=== PATIENT | male | born 1980 | race Caucasian/White ===

== ENCOUNTER 2018-08-07 16:36 | Emergency (ER) | payer OTHER, SELFPAY ==
[2018-08-07 16:36] VITALS: BP 134/75; PULSE 89; RESP 16; TEMP 36.8; O2SAT 99; BMI 34.2
--- NOTE | 2018-08-07 17:07 | CT_ITS ---
STUDY: CT ABDOMEN AND PELVIS WITH CONTRAST REASON FOR EXAM: Male, 38 years old. Pain RADIATION DOSAGE (If Supplied By Facility): DLP = ( 1295.03 ) mGycm TECHNIQUE: Transaxial images were obtained from the dome of the diaphragm to the symphysis pubis without oral contrast. 100mL ml of Isovue 300 contrast was administered. Sagittal and coronal images were reconstructed. Individualized dose optimization techniques were used for this CT. COMPARISON: None. FINDINGS: Bibasilar atelectasis is present. The visualized portions of the heart and pericardium are within normal limits. There are no calcified gallstones present. The liver is within normal limits. There are no suspicious hepatic lesions. The spleen is normal in size. The pancreas is within normal limits. The adrenal glands are within normal limits. There are no obstructing renal stones. There is no hydronephrosis. There are no focal renal lesions. Normal visualized stomach. Colonic diverticulosis is present. There is thickening of the mid to distal descending colonic wall with adjacent inflammatory changes. A focally inflamed diverticulum is present. The aorta is normal in caliber. There is no abdominal or pelvic free air, free fluid, fluid collection or lymphadenopathy. There are no destructive osseous lesions. CT/Abdomen/Pelvis W IV Cont ONLY IMPRESSION: Acute diverticulitis of the mid to distal descending colon.. Electronically Signed: Kunal Baires, at 18:36 EDT Tel , Service support ,
--- NOTE | 2018-08-07 17:10 | ED.DCSUM_ITS ---
- ER Visit Summary Date of Service: 08/07/18 Chief Complaint: Abdominal pain History of Present Illness: The patient is a 38 M presents with left upper and mid abdominal pain as well as some epigastric pain started quite rapidly yesterday radiated to his back but now he has no back pain. He has no fever ch ills no chest pain shortness of breath. He has no lower abdominal pain he has no testicular pain. He has no diarrhea or constipation. He has nausea but no vomiting. Physical Examination: He appears in some distress Moist mucous membranes, no obvious facial deformity No C-spine tenderness supple neck. Regular rate and rhythm without any obvious murmurs Clear lungs bilaterally speaking in full sentences without any obvious respiratory distress Abdomen soft with left mid and upper abdominal pain, there is no CVA pain. There is no guarding or rebound. Moves all extremities without any difficulty or pain. Skin does not show any obvious rashes or lesions, no trauma. Alert oriented ?3 with no gross focal deficit Emergency Department Course and Treatment: She was found to have acute diverticulitis, there is no diverticular abscess blood work is unremarkable I believe the patient is stable for discharge with p.o. Cipro and Flagyl. If he has fever chills or he gets worse needs to return. Discharge stable condition Impression: [Diverticulitis] This note was generated with [employer] dictation software. It may contain incorrect words, spelling, and punctuation that were not noted in review of the chart prior to signing ED Disposition - Plan for ED Patient: Disposition: Home or Assisted Living Instructions: ED Diverticulitis Prescriptions: Hydrocodone Bitart/Apap 5-325 [Brodnax 5MG-325MG] 1 tab PO Q4H PRN PRN 2 Days #12 tab PRN Reason: Pain Referrals: Marisabel Perez, CHAO-C [Primary Care Provider] - 3-5 Days
[2018-08-07] MEDS: Ketorolac 30 MG/ML Syringe 15 MG IV (17:19)
[2018-08-07] MEDS: 0.9% Normal Saline 1,000 ML 1000 ML IV (17:20)
[2018-08-07] MEDS: Ondansetron 4 MG/2 ML Vial IV (17:20)
[2018-08-07] MEDS: Morphine 4 MG/ML Syringe IV (17:20)
[2018-08-07 17:31] LABS: Absolute Lymphocyte Count 1.52 X10^3/ul (0.83-4.51); Absolute Neutrophil Count 8.5 X10^3/uL (2.0-7.7); Basophil# 0.02 X10^3/uL; Basophil% 0.2 % (0-1); Eosinophil# 0.08 X10^3/uL; Eosinophils% 0.7 % (0-5); Hematocrit 44.9 % (40-54); Hemoglobin 15.5 g/dl (13.0-16.5); Lymphocyte # 1.52 X10^3/ul (4.0); Lymphocyte % 13.3 % (19-41); Mean Corp Hgb Conc 34.5 g/gl (32-36); Mean Corpuscular Hgb 28.9 pg (27.0-32.0); Mean Corpuscular Volume 83.8 fL (80-94); Monocyte# 1.25 X10^3/uL; Neutrophil % 74.6 % (47-70); Platelet Count 181 K/mm3 (150-450); RBC Distribution Width CV 13.7 % (11.6-14.6); Red Blood Count 5.36 M/mm3 (4.6-6.2); White Blood Count 11.4 K/mm3 (4.4-11.0)
[2018-08-07 17:43] LABS: POSITIVE COUNT NO; POSITIVE DIFFERENTIAL NO; POSITIVE MORPHOLOGY NO
[2018-08-07 18:07] LABS: ALB/GLOB Ratio 1.1 RATIO (0.9-2.4); AST(SGOT) 12 U/L (15-37); Alanine Aminotransfer ALT/SGPT 35 U/L (16-61); Albumin, Serum 4.1 g/dL (3.2-5.0); Alkaline Phosphatase 100 U/L (45-117); Anion Gap 8 (5-15); BUN 17 mg/dL (7-18); BUN/Creat Ratio 15.5 RATIO (10-20); Chloride 105 mmol/L (98-107); EST Glomerular Filtration Rate 80 mL/min (>60); Est Glom Filt Rate - Afr Amer 97 mL/min (>60); Estimated Creatinine Clearance 89.82 ml/min; Globulin 3.9 g/dL (2.2-4.2); Glucose 100 mg/dL (74-106); Lipase 151 U/L (73-393); Potassium 3.9 mmol/L (3.5-5.1); Sodium Level 140 mmol/L (136-145)
--- NOTE | 2018-08-07 20:22 | DCINST.ED_ITS ---
ED Disposition - Plan for ED Patient: Disposition: Home or Assisted Living Instructions: ED Diverticulitis Prescriptions: Hydrocodone Bitart/Apap 5-325 [[place] 5MG-325MG] 1 tab PO Q4H PRN PRN 2 Days #12 tab PRN Reason: Pain Ciprofloxacin [Cipro] 500 mg PO BID #20 tab Metronidazole [Flagyl] 500 mg PO Q6H #40 tab Referrals: Marisabel Perez TEACHER SELECTION SPECIALIST-C [Primary Care Provider] - 3-5 Days
[2018-08-07] MEDS: metroNIDAZOLE 500 MG Tablet PO (21:10)
[2018-08-07] MEDS: Ciprofloxacin 500 MG Tablet PO (21:10)
[2018-08-07 21:14] VITALS: PULSE 68; RESP 16; O2SAT 98
== END 2018-08-07 21:14 | disposition home or self-care (01) ==
PROVIDERS: Emergency Provider Emergency Medicine; Family Provider Nurse Practitioner; PCP Nurse Practitioner
DX: K57.92 Diverticulitis of intestine, part unspecified, without perforation or abscess without bleeding (principal); I10 Essential (primary) hypertension; Z72.0 Tobacco use; Z79.899 Other long term (current) drug therapy
CPT/HCPCS: 74177; 80053; 83690; 84484; 85025; 96361; 96374; 96375; 99284; J7030; Q9967; J2405

== ENCOUNTER 2020-01-22 08:20 | Emergency (ER) | payer OTHER, SELFPAY ==
[2020-01-22 08:20] VITALS: BP 145/93; PULSE 83; RESP 18; TEMP 36.6; O2SAT 100; BMI 37.0
--- NOTE | 2020-01-22 08:41 | RAD_ITS ---
STUDY: X-RAY CHEST REASON FOR EXAM: Male, 39 years old. chest pain TECHNIQUE: PA and lateral views of the chest. COMPARISON: None. FINDINGS: The lungs are clear and expanded. There is no demonstrated pleural abnormality. Normal size heart. Normal mediastinum and toy. Normal visualized pulmonary arteries. Normal visualized aortic arch and descending thoracic aorta. Normal visualized thoracic spine. Normal visualized ribs, clavicles, and shoulders. There is no demonstrated abnormality of the visualized soft tissue structures of the upper abdomen. RAD/Chest PA and Lateral IMPRESSION: Normal x-ray examination of the chest. Electronically Signed: Carlos Alberto Alfonso MD at 9:17 EDT Tel , Service support ,
--- NOTE | 2020-01-22 08:41 | ED.VIS.GEN ---
History of Present Illness Chief Complaint: Chest Pain Narrative: Patient is a 39-year-old male who presents with chest pain. This been going on for about 3 to 4 days. He complains of sharp substernal chest pain which is worse with palpation or deep inspiration. It is also worse if he lays on his stomach or on his side and is relieved by laying flat on his back. He also complains of nausea. He complains of feeling short of breath. No fever. No cough. No vomiting or diarrhea. No sore throat congestion rhinorrhea or headache. He does frequently travel for work and often will be in the vehicle for 4 hours at a time. He states a few weeks ago he had severe left leg pain which lasted about a week and went from his thigh down to his calf. This resolved little over a week ago and he currently has no leg pain. No edema. No history of DVT or pulmonary embolism. Past Medical History - Allergies and Home Meds Allergies/Adverse Reactions: Allergies No Known Allergies Allergy (Verified 01/22/20 08:23) Primary Care Physician: Marisabel Perez OFFSET PLATE PREPARATION SUPERVISOR, OFFSET PLATE PREPARATION SUPERVISOR-C [Primary Care Provider] - Past Medical History: - - Hypertension Smoking Status: Former smoker Review of Systems All systems negative except as indicated General: Denies: Fever Eyes: Denies: Visual changes - bilaterally ENT: Denies: Bilateral ear pain Cardiovascular: Reports: Chest pain Respiratory: Reports: Dyspnea. Denies: Cough, Sputum Gastrointestinal: Reports: Nausea. Denies: Abdominal pain, Vomiting, Diarrhea Musculoskeletal: Reports: Extremity Pain. Denies: Swelling Skin: Denies: Rash Neurological: Denies: Headache Hematologic: Denies: Easy bruising, Easy bleeding Allergy: Denies: Uticaria Physical Exam Vital Signs/Narrative: Vital Signs Temp Pulse Resp BP Pulse Ox 01/22/20 08:20 97.9 F 83 18 145/93 H 100 Inital Vital Signs reviewed: Yes General: Well nourished Head: Normocephalic Eyes: EOMI ENT: Moist mucous membranes Neck: Supple Cardiovascular: Regular rate, Regular rhythm Respiratory: No distress, CTA bilaterally Abdomen: Soft, Nontender, Nondistended Extremities: Nontender, No edema, - - Symmetric palpable radial pulses Skin: Normal color Neurological: Alert Psychological: Normal affect Diagnostic/Tx/Re-eval Impressions Chest X-Ray 01/22/20 08:41 IMPRESSION: Normal x-ray examination of the chest. Electronically Signed: Carlos Alberto Alfonso MD at 9:17 EDT Tel , Service support , 01/22/20 08:41 Chest PA and Lateral [RAD] Stat Laboratory Results 01/22/20 01/22/20 01/22/20 08:20 08:20 08:20 WBC 7.4 RBC 5.17 Hgb 15.3 Hct 45.7 MCV 88.4 MCH 29.6 MCHC 33.5 RDW Std Deviation 42.5 RDW Coeff of Raul 13.2 Plt Count 230 MPV 9.8 Immature Gran % (Auto) 0.500 Neut % (Auto) 63.4 Lymph % (Auto) 26.3 [place] % (Auto) 8.1 Eos % (Auto) 0.9 Baso % (Auto) 0.8 Absolute Neuts (auto) 4.7 Absolute Lymphs (auto) 1.94 Nucleated RBC % 0 PT 13.5 INR 1.1 D-Dimer Quant (PE/DVT) 0.36 Sodium 141 Potassium 3.7 Chloride 108 H Carbon Dioxide 30.0 Anion Gap 3 L BUN 20 H Creatinine 1.12 Estim Creat Clear Calc 87.37 Est GFR (MDRD) Af Amer 95 Est GFR (MDRD) Non-Af 78 BUN/Creatinine Ratio 17.9 Glucose 111 H Calcium 9.2 Troponin I < 0.015 - Medical Decision Making EKG shows normal sinus rhythm at a rate of 76 with no acute ischemic changes. Laboratory studies and chest x-ray unremarkable. Heart score is 1. The description of patient's symptoms is atypical. He has a normal EKG and negative troponin. I do feel he is safe for outpatient follow-up but he does understand to return for new or worsening symptoms and was advised on specific signs and symptoms to monitor for and the patient was discharged. ED Disposition - Plan for ED Patient: Disposition: Home or Assisted Living Diagnosis: Chest pain Instructions: ED Chest Pain NonCardiac Referrals: Marisabel Perez NP, OFF[employer] PLATE PREPARATION SUPERVISOR-C [Primary Care Provider] -
[2020-01-22 08:48] LABS: Absolute Lymphocyte Count 1.94 X10^3/uL (0.83-4.51); Absolute Neutrophil Count 4.7 X10^3/uL (2.0-7.7); Basophil# 0.06 X10^3/uL; Basophil% 0.8 % (0-1); Eosinophil# 0.07 X10^3/uL; Eosinophils% 0.9 % (0-5); Hematocrit 45.7 % (40-54); Hemoglobin 15.3 g/dL (13.0-16.5); Lymphocyte # 1.94 X10^3/ul (4.0); Lymphocyte % 26.3 % (19-41); Mean Corp Hgb Conc 33.5 g/dL (32-36); Mean Corpuscular Hgb 29.6 pg (27.0-32.0); Mean Corpuscular Volume 88.4 fL (80-94); Mean Platelet Vol. 9.8 fl (6.2-12.0); Monocyte% 8.1 % (0-10); NRBC Flagged by Analyzer 0 % (0-5); Neutrophil # 4.67 X10^3/uL (2.7-7.7); Neutrophil % 63.4 % (47-70); Platelet Count 230 K/mm3 (150-450); RBC Distribution Width CV 13.2 % (11.6-14.6); RBC Distribution Width SD 42.5 fl (35.1-43.9); Red Blood Count 5.17 M/mm3 (4.6-6.2); White Blood Count 7.4 K/mm3 (4.4-11.0)
[2020-01-22 09:00] LABS: Anion Gap 3 (5-15); BUN 20 mg/dL (7-18); BUN/Creat Ratio 17.9 RATIO (10-20); Calcium,Total 9.2 mg/dL (8.5-10.1); Chloride 108 mmol/L (98-107); Creatinine, Serum 1.12 mg/dL (0.70-1.30); EST Glomerular Filtration Rate 78 mL/min (>60); Est Glom Filt Rate - Afr Amer 95 mL/min (>60); Estimated Creatinine Clearance 87.37 ml/min; Glucose 111 mg/dL (74-106); International Normalized Ratio 1.1; Potassium 3.7 mmol/L (3.5-5.1); Prothrombin Time (Protime)PT. 13.5 SECONDS (11.7-14.9); Sodium Level 141 mmol/L (136-145)
[2020-01-22 09:02] LABS: D-Dimer Quantitative (DVT/PE) 0.36 FEU/ug/m (0.27-0.49)
[2020-01-22 10:00] VITALS: BP 136/99; PULSE 77; RESP 16; O2SAT 97
--- NOTE | 2020-01-22 10:01 | ED.RN ---
pt has a rash around his neck and on his r shoulder. dr gomez made aware and talked to the pt about this issue
== END 2020-01-22 10:02 | disposition home or self-care (01) ==
PROVIDERS: Emergency Provider Emergency Medicine; PCP Nurse Practitioner
DX: R07.9 Chest pain, unspecified (principal); I10 Essential (primary) hypertension; Z79.899 Other long term (current) drug therapy
CPT/HCPCS: 71046; 80048; 84484; 85025; 85379; 85610; 93005; 99285; A4216

== ENCOUNTER 2021-02-02 09:55 | Emergency (ER) | payer OTHER, SELFPAY ==
[2021-02-02] VITALS (7 sets, daily range): BP systolic 196; BP diastolic 111; PULSE 105–108; RESP 18; TEMP 37.5; O2SAT 93–97; BMI 38.2
--- NOTE | 2021-02-02 10:14 | RAD_ITS ---
STUDY: X-RAY CHEST REASON FOR EXAM: Male, 40 years old. 6 day history of cough and shortness of breath. TECHNIQUE: Single AP portable view of the chest. COMPARISON: Comparison is made with prior study dated 01/22/2020. FINDINGS: Scattered calcified granulomas. There is no demonstrated pleural abnormality. Normal size heart. Normal mediastinum and toy. Normal visualized pulmonary arteries. Normal visualized aortic arch and descending thoracic aorta. Normal visualized thoracic spine. Normal visualized ribs, clavicles, and shoulders. There is no demonstrated abnormality of the visualized soft tissue structures of the upper abdomen. RAD/Chest 1 View (Portable) IMPRESSION: Scattered calcified granulomas. Electronically Signed: Shabbir Sands MD at 11:01 EST , Service support ,
--- NOTE | 2021-02-02 10:18 | EX.ED.DYSGE1 ---
HPI History of Present Illness Chief Complaint: Shortness of Breath Informant: patient Narrative Narrative: 40-year-old male presenting with Covid symptoms. He states his symptoms started approximately one week ago. He had a home Covid test that was positive 6 days ago. He states his family all tested positive at home as well. He has had fever, body aches, generalized fatigue. He denies chest pain or shortness of breath. He has had diarrhea. Denies vomiting. Prior similar symptoms: No Recent Illness/Hospitalization: No PFSH PFSH Medical History (Updated 02/02/21 @ 11:[address] Ida Simms MD) Hypertension Hypertension Home Medications losartan 50 mg PO DAILY 08/07/18 [History Last Taken 01/21/20] Allergy/AdvReac Type Severity Reaction Status Date / Time No Known Allergies Allergy Verified 02/02/21 09:57 Social History Smoking Status: Former smoker ROS ROS ED Constitutional Constitutional ED: Denies fever(s) Eyes Eyes: Denies change in vision ENT ENT ED: Reports rhinorrhea; Denies sore throat Cardiovascular Cardiovascular: Denies chest pain or palpitations Respiratory/Chest Respiratory/Chest: Reports cough; Denies dyspnea Gastrointestinal Gastrointestinal: Reports diarrhea; Denies abdominal pain, nausea or vomiting Genitourinary Genitourinary ED: Denies dysuria Musculoskeletal Musculoskeletal: Reports myalgias Integumentary Denies rash Neurologic Neurologic: Denies headache(s) Psychiatric Psychiatric: Denies suicidal thoughts EXAM Physical Exam Const Vital Signs: 02/02/21 09:57 02/02/21 10:01 02/02/21 10:06 Temperature 99.5 F H 99.5 F H Temperature Source Temporal Temporal Pulse Rate 108 H 108 H Respiratory Rate 18 18 Respiratory Effort Normal Non-Labored Respiratory Depth Normal Respiratory Pattern Normal Blood Pressure 196/111 H 196/111 H Blood Pressure Mean 139 139 Pulse Ox 97 97 Oxygen Delivery Method Room Air Room Air Room Air 02/02/21 10:08 Temperature Temperature Source Pulse Rate Respiratory Rate Respiratory Effort Normal Respiratory Depth Normal Respiratory Pattern Normal Blood Pressure Blood Pressure Mean Pulse Ox Oxygen Delivery Method Room Air Positive well nourished and well developed General Appearance ED: well developed HEENT Reports normocephalic and head/scalp atraumatic Eyes PERRL and EOMs intact bilaterally Neck supple General: Negative for tenderness Chest Wall inspection of chest normal Resp normal respiratory effort and clear to auscultation bilaterally Cardio regular rate and regular rhythm GI non-tender and non-distended Palpation: soft; Negative for guarding or rebound tenderness present no CVA tenderness Extremity normal to inspection Neuro oriented x3 Sensorium / Orientation: alert Psych mental status grossly normal MDM MDM MDM Narrative Medical decision making narrative: Pulse ox is 97% on room air. Ambulatory pulse ox is 93% on room air. CBC shows white count 3.8, platelet 119, chemistries unremarkable. Covid test is positive. Chest x-ray read by myself and radiology shows scattered calcified granulomas. Patient is resting comfortably on reevaluation. He does qualify for monoclonal antibody treatment due to his BMI. This was ordered. Patient will follow up with his primary care physician. He was advised signs and symptoms for which to return to the ED. Lab Data Attestation: I reviewed the patient's lab results. Labs: Laboratory Results - last 24 hr 02/02/21 02/02/21 10:20 10:20 WBC 3.8 L RBC 5.34 Hgb 15.6 Hct 45.8 MCV 85.8 MCH 29.2 MCHC 34.1 RDW Std Deviation 40.6 RDW Coeff of Raul 12.9 Plt Count 119 L MPV 9.5 Immature Gran % (Auto) 0.500 Neut % (Auto) 64.7 Lymph % (Auto) 26.6 [place] % (Auto) 7.9 Eos % (Auto) 0.0 Baso % (Auto) 0.3 Absolute Neuts (auto) 2.5 Absolute Lymphs (auto) 1.01 Nucleated RBC % 0 Sodium 135 L Potassium 3.5 Chloride 100 Carbon Dioxide 29.0 Anion Gap 6 BUN 9 Creatinine 1.17 Estim Creat Clear Calc 82.82 Est GFR (MDRD) Af Amer 89 Est GFR (MDRD) Non-Af 74 BUN/Creatinine Ratio 7.7 L Glucose 103 Calcium 9.0 Radiography Chest X-Ray - ED: 1 View, Read by ED Physician and Read by Radiologist Diagnostic Testing: Clinical Impression(s) from Imaging Studies Chest X-Ray 02/02/21 10:14 IMPRESSION: Scattered calcified granulomas. Electronically Signed: Shabbir Sands MD at 11:01 EST , Service support , Discharge Plan Triage Chief Complaint: Shortness of Breath ED Provider: Ida Simms Dx/Rx/DC Orders Clinical Impression: COVID-19 Instructions: Coronavirus Disease 2019 (COVID-19): Overview Prescriptions: No Action losartan 50 MG tablet 50 mg PO DAILY RF: 0 Other Ambulatory Orders: COVID Outpatient Monoclonal Antibody Referral (Routine) Timeframe: 1 Day Facility: [facility] - Location: [facility] Ordered By: Dr. Ida Simms Primary Care Provider: Marisabel Perez NP Referrals: Marisabel Perez PEDIATRIC ONCOLOGIST, PEDIATRIC ONCOLOGIST-C [Primary Care Provider] - Disposition Disposition: Home, Self Care
[2021-02-02 10:29] LABS: Absolute Lymphocyte Count 1.01 X10^3/uL (0.83-4.51); Absolute Neutrophil Count 2.5 X10^3/uL (2.0-7.7); Basophil# 0.01 X10^3/uL; Basophil% 0.3 % (0-1); Hematocrit 45.8 % (40-54); Hemoglobin 15.6 g/dL (13.0-16.5); Lymphocyte # 1.01 X10^3/ul (0.83-4.51); Lymphocyte % 26.6 % (19-41); Mean Corp Hgb Conc 34.1 g/dL (32-36); Mean Corpuscular Hgb 29.2 pg (27.0-32.0); Mean Corpuscular Volume 85.8 fL (80-94); Mean Platelet Vol. 9.5 fl (6.2-12.0); Monocyte% 7.9 % (0-10); NRBC Flagged by Analyzer 0 % (0-5); Neutrophil # 2.45 X10^3/uL (2.7-7.7); Neutrophil % 64.7 % (47-70); Platelet Count 119 K/mm3 (150-450); RBC Distribution Width CV 12.9 % (11.6-14.6); RBC Distribution Width SD 40.6 fl (35.1-43.9); Red Blood Count 5.34 M/mm3 (4.6-6.2); White Blood Count 3.8 K/mm3 (4.4-11.0)
[2021-02-02] MEDS: 0.9% Normal Saline 1,000 ML 1000 ML IV (10:40)
[2021-02-02 10:46] LABS: Anion Gap 6 (5-15); BUN 9 mg/dL (7-18); BUN/Creat Ratio 7.7 RATIO (10-20); Chloride 100 mmol/L (98-107); Creatinine, Serum 1.17 mg/dL (0.70-1.30); EST Glomerular Filtration Rate 74 mL/min (>60); Est Glom Filt Rate - Afr Amer 89 mL/min (>60); Estimated Creatinine Clearance 82.82 ml/min; Glucose 103 mg/dL (74-106); Potassium 3.5 mmol/L (3.5-5.1); Sodium Level 135 mmol/L (136-145)
== END 2021-02-02 12:05 | disposition home or self-care (01) ==
PROVIDERS: Emergency Provider Emergency Medicine; PCP Nurse Practitioner
DX: U07.1 COVID-19 (principal); I10 Essential (primary) hypertension; Z79.899 Other long term (current) drug therapy; Z87.891 Personal history of nicotine dependence
CPT/HCPCS: 71045; 80048; 85025; 87426; 96360; 99284; J7030; A4216

== ENCOUNTER 2021-02-02 15:42 | Outpatient (CLI) | payer OTHER, SELFPAY ==
[2021-02-02 16:07] VITALS: BP 143/89; PULSE 94; RESP 16; TEMP 36.7; O2SAT 94; BMI 37.2
[2021-02-02] MEDS: 0.9% Saline Lock 10 ML Syringe IV (16:40)
[2021-02-02 17:15] VITALS: BP 124/88; PULSE 89; RESP 16; TEMP 36.8; O2SAT 96
[2021-02-02 18:23] VITALS: BP 124/88; PULSE 84; RESP 16; TEMP 37; O2SAT 96
== END 2021-02-02 18:24 | disposition home or self-care (01) ==
LOC: MS3OUT 15:43 → MS3 15:43
PROVIDERS: PCP Nurse Practitioner; Referring Provider Nurse Practitioner Adult Health; Visit Provider Nurse Practitioner Adult Health
DX: Z23 Encounter for immunization (principal); U07.1 COVID-19
CPT/HCPCS: J7050; M0245; Q0245; A4216